=== PATIENT | female | born 1960 | race Two or more races ===

== ENCOUNTER 2022-09-05 08:45 | Inpatient (IN) | payer OTHER ==
[~2022-09-05] VITALS: Ht 167.6 cm; Wt 147.5 kg
[2022-09-05] MEDS ORDERED: ONDANSETRON HCL 4 MG/2 ML VIAL IV ONE (10:15)
[2022-09-05] MEDS ORDERED: SODIUM CHLORIDE 0.9% 1,000 ML IV ONE ×3 (10:15→21:15)
[2022-09-05 10:56] LABS: Basophils # (auto) 0 10 ^3/uL (0-0.2); Basophils % (auto) 0.2 % (0.0-2.0); Eosinophils # (auto) 0.1 10 ^3/uL (0-0.8); Eosinophils % (auto) 0.8 % (0.0-7.0); Hematocrit 39.8 % (36.0-46.0); Hemoglobin 13.4 g/dL (12.2-16.2); Lymphocytes # (auto) 0.9 10 ^3/uL (0.4-5.4); Mean Corpuscular Hemoglobin 29.4 pg (28.0-32.0); Mean Corpuscular Hgb Conc. 33.7 g/dL (32.0-36.0); Mean Corpuscular Volume 87.2 fL (80.0-100.0); Monocytes # (auto) 0.5 10 ^3/uL (0-1.3); Neutrophils # (auto) 8.3 10 ^3/uL (1.6-8.6); Nucleated Red Blood Cells % 0.1 %; Red Blood Cells 4.56 10^6/uL (4.0-5.20); Red Cell Distribution Width 13.4 % (11.8-14.3); White Blood Cell 9.8 10^3/uL (4.4-10.8)
[2022-09-05 11:09] LABS: Albumin 3.8 g/dL (3.4-5.0); Calcium 9.1 mg/dL (8.5-10.1); Potassium 4.4 mmol/L (3.5-5.1)
[2022-09-05 11:12] LABS: BUN/Creatinine Ratio 24.2; Bilirubin, Total 0.5 mg/dL (0.2-1.0); Total Protein 6.9 g/dL (6.4-8.2)
[2022-09-05] MEDS ORDERED: IOHEXOL 350 MG/ML 100ML IJ ONE ×3 (15:21→21:28)
[2022-09-05] MEDS ORDERED: DEXTROSE (50%) 50ML SYRG IV PRN (21:00)
[2022-09-05] MEDS ORDERED: cefTRIAXone 1GM/50ML D5W 50 ML IV ONE (21:00)
[2022-09-05 21:45] LABS: Cholesterol 192 mg/dL (< 200); HDL Cholesterol 54 mg/dL (40-59); LDL Cholesterol 119 mg/dL (< 100); Triglycerides 103 mg/dL (< 150)
[2022-09-06] MEDS: InsuLIN REG 1unit/0.01ml Soln (100units/ml) SC SCH ×5 (00:30→23:14)
[2022-09-06] MEDS: ACCU-CHEK COMFORT CURVE STRIP VI SCH ×5 (00:30→23:12)
[2022-09-06] MEDS: metroNIDAZOLE 500MG/100ML 100 ML IV SCH ×4 (00:30→23:08)
[2022-09-06 05:39] LABS: Urine Amorphous Crystal FEW /hpf (None Seen); Urine Bacteria FEW /hpf (None Seen); Urine Blood Negative /uL (Negative); Urine Hyaline Cast FEW /lpf (0 - 2); Urine Specific Gravity 1.023 (1.001-1.035); Urine WBC 7 /hpf (0 - 5)
[2022-09-06] MEDS ORDERED: FLEET ENEMA(ADULT) 135 ML PR ONE (09:15)
[2022-09-06] MEDS: cefTRIAXone 1GM/50ML D5W 50 ML IV SCH (09:54)
[2022-09-06] MEDS: ENOXAPARIN SOD 40 MG/0.4 ML SYRINGE SC SCH (11:07)
[2022-09-06] MEDS ORDERED: BISACODYL 10 MG RECT SUPP PR ONE (18:15)
[2022-09-06] MEDS ORDERED: CLOP75TA70 PO (23:04)
[2022-09-06] MEDS ORDERED: KEP500T PO (23:04)
[2022-09-06 23:05] VITALS: BP 129/62
[2022-09-06] MEDS: levETIRAcetam 500 MG TAB PO SCH (23:05)
[2022-09-07 05:00] VITALS: BP 119/71
[2022-09-07] MEDS: metroNIDAZOLE 500MG/100ML 100 ML IV SCH ×3 (05:35→22:11)
[2022-09-07] MEDS: InsuLIN REG 1unit/0.01ml Soln (100units/ml) SC SCH ×4 (06:17→22:10)
[2022-09-07] MEDS: ACCU-CHEK COMFORT CURVE STRIP VI SCH ×4 (06:17→22:06)
[2022-09-07 06:31] LABS: Albumin 3.5 g/dL (3.4-5.0); Calcium 9.5 mg/dL (8.5-10.1); Potassium 3.8 mmol/L (3.5-5.1)
[2022-09-07 06:38] LABS: BUN/Creatinine Ratio 16.7; Bilirubin, Total 0.7 mg/dL (0.2-1.0)
[2022-09-07 06:43] LABS: Total Protein 7.1 g/dL (6.4-8.2)
[2022-09-07 08:30] VITALS: BP 133/56
[2022-09-07] MEDS: levETIRAcetam 500 MG TAB PO SCH ×2 (09:56→22:11)
[2022-09-07] MEDS: ENOXAPARIN SOD 40 MG/0.4 ML SYRINGE SC SCH (09:56)
[2022-09-07] MEDS: cefTRIAXone 1GM/50ML D5W 50 ML IV SCH (09:56)
[2022-09-07] MEDS ORDERED: LACTULOSE 20Gm/30ML SOLN PO ONE (10:15)
[2022-09-07] MEDS ORDERED: FLEET ENEMA(ADULT) 135 ML PR ONE (10:15)
[2022-09-07 12:30] VITALS: BP 107/39
[2022-09-07 16:40] VITALS: BP 122/54
[2022-09-07] MEDS ORDERED: LEVO500T31 PO (18:58)
[2022-09-07] MEDS ORDERED: METR500T PO (18:58)
[2022-09-07] MEDS ORDERED: LACT10SO3 PO (18:58)
[2022-09-08] MEDS: metroNIDAZOLE 500MG/100ML 100 ML IV SCH ×2 (05:41→14:00)
[2022-09-08] MEDS: ACCU-CHEK COMFORT CURVE STRIP VI SCH ×2 (06:40→11:53)
[2022-09-08] MEDS: InsuLIN REG 1unit/0.01ml Soln (100units/ml) SC SCH ×2 (06:41→11:30)
[2022-09-08 09:00] VITALS: BP 144/63
[2022-09-08] MEDS ORDERED: CLOPIDOGREL BISULFATE 75 MG TAB PO SCH (10:00)
[2022-09-08] MEDS: cefTRIAXone 1GM/50ML D5W 50 ML IV SCH (10:30)
[2022-09-08] MEDS: levETIRAcetam 500 MG TAB PO SCH (10:37)
[2022-09-08] MEDS: ENOXAPARIN SOD 40 MG/0.4 ML SYRINGE SC SCH (10:38)
[2022-09-08 13:00] VITALS: BP 133/52
[2022-09-08 15:21] VITALS: BP 133/52
[2022-09-10 09:01] LABS: Hepatitis B Surface Antibody Negative (Negative)
[2022-09-10 09:29] LABS: Hepatitis A Total Antibody Negative (Negative)
[2022-09-10 14:35] LABS: Hepatitis C Antibody Negative (Negative)
== END 2022-09-08 17:10 | disposition home or self-care (01) | DRG 389 ==
LOC: ER 08:45 → OVERFLOW 20:54 → EAST 09-06 22:22
PROVIDERS: ADMIT Registered Nurse; ATTEND Internal Medicine
DX: K56.41 Fecal impaction (principal); N39.0 Urinary tract infection, site not specified; K52.9 Noninfective gastroenteritis and colitis, unspecified; E78.5 Hyperlipidemia, unspecified; E11.9 Type 2 diabetes mellitus without complications; I10 Essential (primary) hypertension; R74.8 Abnormal levels of other serum enzymes; R79.89 Other specified abnormal findings of blood chemistry; Z20.822 Contact with and (suspected) exposure to COVID-19; D25.9 Leiomyoma of uterus, unspecified; Z99.3 Dependence on wheelchair; Z86.73 Personal history of transient ischemic attack (TIA), and cerebral infarction without residual deficits; Z74.01 Bed confinement status
CPT/HCPCS: 36415; 70450; 71045; 71260; 74177; 76705; 80053; 80061; 81001; 82378; 82962; 83036; 84443; 84484; 85025; 85379; 86704; 86706; 86708; 86803; 87040; 87086; 87340; 87426; 93005; 93970; 96365; 96366; 96372; 96375; G0378; J0696; J1815; J2405; J3490

== ENCOUNTER → 2022-10-04 | Outpatient (CLI) | payer OTHER ==
[~2022-10-04] MED LIST: CLOP75TA70 PO; KEP500T PO; LACT10SO3 PO; LEVO500T31 PO; METR500T PO
[2022-10-04 10:30] LABS: Basophils # (auto) 0 10 ^3/uL (0-0.2); Basophils % (auto) 0.4 % (0.0-2.0); Eosinophils # (auto) 0.4 10 ^3/uL (0-0.8); Hematocrit 41.3 % (36.0-46.0); Hemoglobin 13.8 g/dL (12.2-16.2); Lymphocytes # (auto) 1.7 10 ^3/uL (0.4-5.4); Lymphocytes % (auto) 28.3 % (10.0-50.0); Mean Corpuscular Hemoglobin 29.6 pg (28.0-32.0); Mean Corpuscular Hgb Conc. 33.4 g/dL (32.0-36.0); Mean Corpuscular Volume 88.7 fL (80.0-100.0); Monocytes # (auto) 0.5 10 ^3/uL (0-1.3); Monocytes % (auto) 7.6 % (0.0-12.0); Neutrophils # (auto) 3.5 10 ^3/uL (1.6-8.6); Neutrophils % (auto) 57.7 % (37.0-80.0); Red Blood Cells 4.66 10^6/uL (4.0-5.20); Red Cell Distribution Width 14.1 % (11.8-14.3); White Blood Cell 6.1 10^3/uL (4.4-10.8)
[2022-10-04 10:52] LABS: Potassium 4.5 mmol/L (3.5-5.1)
[2022-10-04 11:00] LABS: BUN/Creatinine Ratio 24.3; Bilirubin, Total 0.5 mg/dL (0.2-1.0); Calcium 9.4 mg/dL (8.5-10.1); Total Protein 7.6 g/dL (6.4-8.2)
== END | disposition home or self-care (01) ==
LOC: LAB 10:00
PROVIDERS: ATTEND Nurse Practitioner
DX: I10 Essential (primary) hypertension (principal); E78.5 Hyperlipidemia, unspecified
CPT/HCPCS: 36415; 80053; 80061; 84443; 85025

== ENCOUNTER → 2023-01-22 | Outpatient (CLI) | payer OTHER ==
[2023-01-22 11:00] LABS: Albumin 3.7 g/dL (3.4-5.0); Calcium 9.4 mg/dL (8.5-10.1); Potassium 4.1 mmol/L (3.5-5.1)
[2023-01-22 11:07] LABS: BUN/Creatinine Ratio 20.2 (10.0-20.0); Bilirubin, Total 0.5 mg/dL (0.2-1.0); Total Protein 7.4 g/dL (6.4-8.2)
== END | disposition home or self-care (01) ==
LOC: LAB 09:27
PROVIDERS: ATTEND Nurse Practitioner
DX: I10 Essential (primary) hypertension (principal); E78.5 Hyperlipidemia, unspecified
CPT/HCPCS: 36415; 80053; 80061